=== PATIENT | female | born 1965 | race Hispanic/Latino ===

== ENCOUNTER 2021-11-11 15:00 | Emergency (ER) | payer MEDICAID ==
[~2021-11-11] VITALS: Ht 162.6 cm; Wt 104.1 kg
[2021-11-11] MEDS ORDERED: BUDESONIDE 0.5 MG/2 ML INH IH ONE (15:44)
[2021-11-11 15:58] LABS: BASOPHILS % (AUTO) 0.4 % (0.0-5.0); EOSINOPHILS % (AUTO) 0.4 % (0.0-8.0); HEMATOCRIT 41.2 % (36-48); LYMPHOCYTES % (AUTO) 36.2 % (21.0-51.0); MEAN CORPUSCULAR HEMOGLOBIN 30.8 pg (27.0-33.0); MEAN CORPUSCULAR HGB CONC 33.3 g/dL (32.0-36.0); MEAN CORPUSCULAR VOLUME 92.6 fL (79-99); MONOCYTES % (AUTO) 10.2 % (3.0-13.0); NEUTROPHILS % (AUTO) 52.4 % (40.0-77.0); PLATELET COUNT (AUTO) 275 K/uL (130-400); RED BLOOD CELL COUNT(AUTO) 4.45 MIL/uL (4.00-5.50); RED CELL DISTRIBUTION WIDTH 12.9 % (11.0-15.5); WHITE BLOOD COUNT (AUTO) 5.7 K/uL (4.8-10.8)
[2021-11-11] MEDS ORDERED: IPRATROPIUM/ALBUTEROL SULFATE 3 ML SOLUTION IH ONE (16:00)
[2021-11-11] MEDS ORDERED: DOXYCYCLINE HYCLATE 100 MG TABLET PO SCH (16:00)
[2021-11-11] MEDS ORDERED: AZITHROMYCIN 250 MG TABLET PO ONE (16:00)
[2021-11-11] MEDS ORDERED: 0.9%NACL 1000ML 1,000 ML IV SCH (16:00)
[2021-11-11] MEDS ORDERED: ALBUTEROL 0.083% 2.5 MG/3 ML INH IH ONE ×2 (16:00)
[2021-11-11 16:17] LABS: CREATININE 1.3 mg/dL (0.5-1.5)
[2021-11-11 16:21] LABS: ALBUMIN 2.6 g/dL (3.5-5.0); TOTAL PROTEIN, SERUM 6.3 g/dL (6.0-8.3)
[2021-11-11 16:28] LABS: B-TYPE NATRIURETIC PEPTIDE 11 pg/mL (0-100)
[2021-11-11] MEDS ORDERED: NAPR-1180 PO (16:42)
[2021-11-11] MEDS ORDERED: DOXY-336 PO (16:42)
[2021-11-11] MEDS ORDERED: D-ME1POW16 PO (16:42)
[2021-11-11] MEDS ORDERED: CYCL10TA16 PO (16:42)
[2021-11-11 16:48] VITALS: BP 124/48
[2021-11-11] MEDS ORDERED: ALBU8.5H8 IH (16:52)
== END 2021-11-11 18:22 | disposition home or self-care (01) ==
LOC: EDH 15:00
DX: S30.0XXA Contusion of lower back and pelvis, initial encounter (principal); J40 Bronchitis, not specified as acute or chronic; E86.0 Dehydration; E11.65 Type 2 diabetes mellitus with hyperglycemia; Z20.822 Contact with and (suspected) exposure to COVID-19; E66.01 Morbid (severe) obesity due to excess calories; Z79.1 Long term (current) use of non-steroidal anti-inflammatories (NSAID); Z79.51 Long term (current) use of inhaled steroids; Z87.442 Personal history of urinary calculi; Z88.0 Allergy status to penicillin; Z68.39 Body mass index [BMI] 39.0-39.9, adult; W18.39XA Other fall on same level, initial encounter; Y93.89 Activity, other specified; Y92.811 Bus as the place of occurrence of the external cause; Y99.8 Other external cause status
CPT/HCPCS: 99285; 96360; 71045; 87635; 87880; 84484; 80053; 83880; 85025; 87804 ×2; 82948; 83605; 36415; 72100; 94640 ×4; C9803; J7030